=== PATIENT | female | born 2000 | race Asian ===

== ENCOUNTER 2019-04-09 10:05 | Emergency (ER) | payer OTHER ==
[~2019-04-09] VITALS: Ht 167.6 cm; Wt 49.4 kg
[2019-04-09 10:15] VITALS: BP 134/69; Ht 167.6 cm; Wt 49.4 kg
[2019-04-09 10:41] LABS: CARBON DIOXIDE 28.2 mmol/L (21-32); CHLORIDE SERUM 104 mmol/L (98-107); CREATININE SERUM 0.6 mg/dL (0.6-1.0); GFR1 > 60 mL/min; GLUCOSE SERUM 97 mg/dL (74-106); POTASSIUM SERUM 3.7 mmol/L (3.5-5.1); SODIUM SERUM 138 mmol/L (136-145)
[2019-04-09 10:42] LABS: BASOPHIL % 0.1 % (0-2); PLATELET COUNT 274 x10^3mcL (130-400); RED CELL DISTRIBUTION WIDTH 12.8 % (11.5-14.5)
[2019-04-09 10:46] LABS: ALBUMIN 3.6 g/dL (3.4-5.0); ALKALINE PHOSPHATASE 69 U/L (46-116); ALT/SGPT 19 U/L (14-59); AST/SGOT 12 U/L (15-37); BILIRUBIN TOTAL 0.68 mg/dL (0.20-1.00); LIPASE 108 IU/L (73-393)
[2019-04-09 10:49] LABS: TOTAL PROTEIN, SERUM 8.5 g/dL (6.4-8.2)
== END 2019-04-09 13:41 | disposition home or self-care (01) ==
LOC: ED 10:05
DX: R10.11 Right upper quadrant pain (principal)
CPT/HCPCS: 36415

== ENCOUNTER 2019-04-11 17:51 | Emergency (ER) | payer OTHER ==
[~2019-04-11] VITALS: Ht 167.6 cm; Wt 48.5 kg
[2019-04-11 17:58] VITALS: Ht 167.6 cm; Wt 48.5 kg
[2019-04-11 18:33] LABS: BASOPHIL % 0.1 % (0-2); PLATELET COUNT 344 x10^3mcL (130-400); RED CELL DISTRIBUTION WIDTH 12.7 % (11.5-14.5)
[2019-04-11 18:40] LABS: CALCIUM 8.9 mg/dL (8.5-10.1); CARBON DIOXIDE 29.1 mmol/L (21-32); CHLORIDE SERUM 100 mmol/L (98-107); CREATININE SERUM 0.8 mg/dL (0.6-1.0); GFR1 > 60 mL/min; GLUCOSE SERUM 99 mg/dL (74-106); POTASSIUM SERUM 4.2 mmol/L (3.5-5.1); SODIUM SERUM 137 mmol/L (136-145)
[2019-04-11 18:44] LABS: ALBUMIN 3.7 g/dL (3.4-5.0); ALKALINE PHOSPHATASE 66 U/L (46-116); ALT/SGPT 17 U/L (14-59); AST/SGOT 17 U/L (15-37); BILIRUBIN TOTAL 0.4 mg/dL (0.20-1.00); LIPASE 120 IU/L (73-393); TOTAL PROTEIN, SERUM 8.4 g/dL (6.4-8.2)
[2019-04-11 21:17] VITALS: BP 118/66
== END 2019-04-11 21:17 | disposition home or self-care (01) ==
LOC: ED 17:51
PROVIDERS: Specialist
DX: R10.811 Right upper quadrant abdominal tenderness (principal); R11.10 Vomiting, unspecified
CPT/HCPCS: 36415; Q0092